=== PATIENT | female | born 1935 | race Caucasian/White ===

== ENCOUNTER 2020-05-23 10:48 | Inpatient (IN) ==
[2020-05-23] MEDS ORDERED: methylPREDNISolone SOD SUCC 125 MG/2 ML VIAL IV ONE (11:08)
[2020-05-23] MEDS ORDERED: 0.9 % SODIUM CHLORIDE 1,000 ML IV ONE ×2 (11:08→13:15)
--- NOTE | 2020-05-23 11:13 | Emergency Department Note ---
SOB HPI General Chief Complaint: Shortness of Breath/Dyspnea Stated Complaint: short of breath, fever, nausea, chills Time Seen by Provider: 05/23/20 11:08 Source: patient Mode of arrival: wheelchair Limitations: no limitations History of Present Illness HPI Narrative: Narrative: 84-year-old female with shortness of breath and fatigue she is 88% oxygen saturation on admission but normalizes with rest. She has been sick for 6 days with cough congestion fever and malaise. She went to urgent care on day 2 and got a Covid test which turned out to be positive and a chest x-ray. The urgent care provider felt that this was consistent with a bacterial pneumonia and started her on amoxicillin x5 days which has not helped. No nausea vomiting diarrhea. Her main complaint is just profound fatigue. Multiple people around her have been sick Related Data Home Medications Medication Instructions Recorded Confirmed aspirin 81 mg tablet,delayed 81 mg PO QDAY 11/03/19 05/23/20 release calcium carbonate 600 mg calcium 600 mg PO QDAY 11/03/19 05/23/20 (1,500 mg) tablet carvedilol 12.5 mg tablet 12.5 mg PO BID 11/03/19 05/23/20 furosemide 20 mg tablet 20 mg PO QDAY 11/03/19 05/23/20 potassium chloride 20 mEq 20 meq PO QDAY 11/03/19 05/23/20 tablet,extended release(part/cryst) Previous Rx's Medication Instructions Recorded amlodipine 5 mg tablet 5 mg PO QDAY #90 tab 03/22/20 amoxicillin 500 mg capsule 1,000 mg PO BID #20 cap 05/19/20 Allergies Allergy/AdvReac Type Severity Reaction Status Date / Time No Known Drug Allergies Allergy Verified 05/23/20 10:51 Review of Systems ROS ROS Narrative: Narrative: All systems ED: reviewed and negative except as stated. PFSH Narrative Patient History Narrative: Narrative: Medical/Surgical/Family History All Active Problems (Updated 05/23/20 @ 13:15 by Tom Mckeon MD) Pneumonia due to 2019 novel coronavirus (Acute) Acidosis, lactic (Acute) Community acquired bacterial pneumonia (Acute) Venous insufficiency (Acute) Stasis dermatitis of both legs (Acute) Joint pain (Chronic ~1999) Breast cancer (Chronic ~04/2009) Medical History Breast cancer (Chronic ~04/2009) Joint pain (Chronic ~1999) Hand and foot Stasis dermatitis of both legs (Acute) Venous insufficiency (Acute) Surgical History History of appendectomy (Chronic ~1960) History of colonoscopy (Chronic ~07/2012) Dr. Brar History of surgery (Acute ~2008) Right breast lymph nodes History of tonsillectomy (Chronic ~1948) Family History Grandmother Diabetes Paternal Social History Smoking Status: Former smoker Alcohol Intake Frequency: does not drink Substance Use: does not use Exam Narrative Narrative: Narrative: No acute distress resting. Initial oxygen saturation was 88% now 95% on room air at rest. She becomes short of breath with even sitting up for my exam. Normocephalic atraumatic. Conjunctive are clear sclerae white nonicteric. No nasal discharge or congestion. Oropharynx is pink and moist. Heart is regular rate and rhythm no murmur appreciated. Lungs with crackles in all lung vazquez consistent with pneumonia. No wheezes or rhonchi. Abdomen soft nontender nondistended. No pedal edema. +2 radial pulse. Alert oriented able to answer questions appropriately General Limitations: no limitations Course Vital Signs Vital signs: Vital Signs Temperature 99.0 F 05/23/20 10:49 Pulse Rate 76 05/23/20 10:49 Respiratory Rate 18 05/23/20 10:49 Blood Pressure 151/65 05/23/20 10:49 Pulse Oximetry (%) 88 L 05/23/20 10:49 Temperature 97.5 F 05/24/20 08:00 Pulse Rate 81 05/24/20 06:14 Respiratory Rate 17 05/24/20 08:00 Blood Pressure 132/65 05/24/20 08:00 Pulse Oximetry (%) 92 05/24/20 09:12 MDM MDM Narrative Medical decision making narrative: Narrative: Covid positive with exam co nsistent with pneumonia. Amoxicillin did not help. Start Solu-Medrol and get chest x-ray and laboratory. IV fluids Chest x-ray shows Covid pneumonia. Briefly discussed with hospitalist add dexamethasone At rest she is normoxic but when she moves around she requires oxygen. Briefly discussed results with the patient. She has lactic acidosis. On 2 L of oxygen she is saturating 93% at rest. She is requiring oxygen when she starts moving around- sats drop into the 80s. She is agreeable with coming in the hospital for Covid pneumonia. Discussed with hospitalist Dr. Mock -he will come see the patient. Lactic acid is repeated after getting IV fluids Lab Data Lab results reviewed: Yes I reviewed the patient's lab results. Result diagrams: 05/24/20 05:48 05/24/20 05:48 Labs: Lab Results 05/23/20 05/23/20 05/23/20 Range/Units 11:16 11:16 11:16 WBC 9.1 (4.5-11.0) K/mcL RBC 3.71 L (4.00-5.20) M/mcL Hgb 12.3 (12.0-15.0) g/dL Hct 35.6 L (36.0-48.0) % MCV 96.0 (80.0-100.0) fL MCH 33.2 (26.0-34.0) pg MCHC 34.6 (31.0-36.0) g/dL RDW 12.7 (11.5-14.5) % Plt Count 277 (140-440) K/mcL MPV 10.4 (7.4-10.4) fL Neut % (Auto) 75.5 (38.0-78.0) % Lymph % (Auto) 9.9 L (15.0-49.0) % [place] % (Auto) 12.7 H (1.0-12.0) % Eos % (Auto) 1.5 (0.0-7.0) % Baso % (Auto) 0.4 (0.0-2.0) % Lymph # (Auto) 0.90 L (1.50-4.80) K/mcL [place] # (Auto) 1.15 H (0.10-0.90) K/mcL Eos # (Auto) 0.14 (0.00-0.70) K/mcL Baso # (Auto) 0.04 (0.00-0.20) K/mcL Absolute Neutrophils 6.83 (1.80-8.00) K/mcL VBG Lactic Acid 3.3 H (0.5-2.0) mmol/L Sodium 138 (133-145) mmol/L Potassium 3.8 (3.3-5.1) mmol/L Chloride 99 (96-108) mmol/L Carbon Dioxide 26 (22-30) mmol/L Anion Gap 13.0 (8.0-16.0) BUN 19 (8-23) mg/dL Creatinine 1.3 H (0.6-1.1) mg/dL GFR Calculation 38 Glucose 185 H (70-105) mg/dL Calcium 8.0 L (8.6-10.4) mg/dL Total Bilirubin 0.6 (0.1-1.0) mg/dL AST 73 H (<32) U/L ALT 60 H (<40) U/L Alkaline Phosphatase 163 H (39-117) U/L Total Protein 6.5 (5.9-8.4) gm/dL Albumin 3.0 L (3.2-5.2) gm/dL Globulin 3.5 (2.2-3.7) gm/dL Albumin/Globulin Ratio 0.9 L (1.0-2.3) Procalcitonin (<0.10) ng/mL 05/23/20 05/23/20 Range/Units 11:16 16:00 WBC (4.5-11.0) K/mcL RBC (4.00-5.20) M/mcL Hgb (12.0-15.0) g/dL Hct (36.0-48.0) % MCV (80.0-100.0) fL MCH (26.0-34.0) pg MCHC (31.0-36.0) g/dL RDW (11.5-14.5) % Plt Count (140-440) K/mcL MPV (7.4-10.4) fL Neut % (Auto) (38.0-78.0) % Lymph % (Auto) (15.0-49.0) % [place] % (Auto) (1.0-12.0) % Eos % (Auto) (0.0-7.0) % Baso % (Auto) (0.0-2.0) % Lymph # (Auto) (1.50-4.80) K/mcL [place] # (Auto) (0.10-0.90) K/mcL Eos # (Auto) (0.00-0.70) K/mcL Baso # (Auto) (0.00-0.20) K/mcL Absolute Neutrophils (1.80-8.00) K/mcL VBG Lactic Acid 1.5 (0.5-2.0) mmol/L Sodium (133-145) mmol/L Potassium (3.3-5.1) mmol/L Chloride (96-108) mmol/L Carbon Dioxide (22-30) mmol/L Anion Gap (8.0-16.0) BUN (8-23) mg/dL Creatinine (0.6-1.1) mg/dL GFR Calculation Glucose (70-105) mg/dL Calcium (8.6-10.4) mg/dL Total Bilirubin (0.1-1.0) mg/dL AST (<32) U/L ALT (<40) U/L Alkaline Phosphatase (39-117) U/L Total Protein (5.9-8.4) gm/dL Albumin (3.2-5.2) gm/dL Globulin (2.2-3.7) gm/dL Albumin/Globulin Ratio (1.0-2.3) Procalcitonin 0.18 H (<0.10) ng/mL Radiology Data Radiology results reviewed: Yes I reviewed the patient's radiology results. Radiology results narrative: Chest x-ray shows patchy infiltrate consistent with Covid pneumonia EKG Data EKG #1: EKG attestation: Yes I reviewed and interpreted this EKG. and Yes There are no EKG findings of acute coronary syndrome EKG results narrative: EKG shows long [place]. Sinus rhythm. Q-wave in anterior and septal leads as well as inferior leads Discharge Plan Patient/Caregiver Discharge Instructions Pt seen by [employer]CRAFT CLEAN[employer] SUPERVISOR/PA only: No Clinical Impression: Pneumonia due to 2019 novel coronavirus, Acidosis, lactic Patient Disposition: Xfer As Inpt ([facility]) Condition: Fair Discharge Date/Time: 05/23/20 17:53
[2020-05-23] MEDS ORDERED: DEXAMETHASONE 10 MG/ML VIAL IV ONE (11:41)
--- NOTE | 2020-05-23 11:50 | XRay Report ---
CLINICAL INFORMATION: FEVER COMPARISON: 05/19/2020 FINDINGS: Heart size normal for technique. Mediastinum and pulmonary vessels are unremarkable. Moderate patchy right basilar infiltrate appreciated with smaller patchy infiltrates in both upper and left lower lungs. No effusion IMPRESSION: Moderate patchy infiltrate right lower lung with smaller patchy infiltrates in both upper and left lower lungs. Consider aspiration or infection Interpreted and Authenticated by: Ang Valenzuela 05/23/20
[2020-05-23 12:00] LABS: Basophils # (Auto) 0.04 K/mcL (0.00-0.20); Basophils % (Auto) 0.4 % (0.0-2.0); Eosinophils # (Auto) 0.14 K/mcL (0.00-0.70); Eosinophils % (Auto) 1.5 % (0.0-7.0); Hematocrit 35.6 % (36.0-48.0); Hemoglobin 12.3 g/dL (12.0-15.0); Lymphocytes % (Auto) 9.9 % (15.0-49.0); Mean Corpuscular HGB Conc 34.6 g/dL (31.0-36.0); Mean Platelet Volume 10.4 fL (7.4-10.4); Monocytes # (Auto) 1.15 K/mcL (0.10-0.90); Monocytes % (Auto) 12.7 % (1.0-12.0); Neutrophils % (Auto) 75.5 % (38.0-78.0); Platelet Count 277 K/mcL (140-440); RBC 3.71 M/mcL (4.00-5.20); Red Cell Distribution Width 12.7 % (11.5-14.5); WBC 9.1 K/mcL (4.5-11.0)
[2020-05-23 12:21] LABS: ALT/SGPT 60 U/L (<40); AST/SGOT 73 U/L (<32); Albumin/Globulin Ratio 0.9 (1.0-2.3); Alkaline Phosphatase 163 U/L (39-117); Bilirubin,Total 0.6 mg/dL (0.1-1.0); Blood Urea Nitrogen 19 mg/dL (8-23); Carbon Dioxide 26 mmol/L (22-30); Chloride 99 mmol/L (96-108); Globulin 3.5 gm/dL (2.2-3.7); Glomerular Filtration Rate 38; Glucose 185 mg/dL (70-105)
[2020-05-23] MEDS ORDERED: SENNOSIDES 1 TABLET PO PRN (17:04)
[2020-05-23] MEDS ORDERED: REMDESIVIR 200 MG in 0.9 % SODIUM CHLORIDE 250 ML IV ONE ×2 (17:09→18:00)
--- NOTE | 2020-05-23 17:59 | Internal Med History&Physical ---
HPI History of Present Illness Patient information: Note initiated : 05/23/20 at 5:52 pm Service Date, if different from initiated Date: [] Patient: Sherry Watson a 84 y/o F admitted on for short of breath, fever, nausea, chills. Chief Complaint: [Shortness of breath] History of present illness: Ms. Watson is a 84 year old female with a history of hypertension, breast cancer diagnosed in 2019 status post surgery, chemotherapy and radiation therapy and had no recurrence, takes low-dose Lasix for intermittent lower extremity edema who presented to the ED for progressive shortness of breath. The patient was diagnosed with COVID on 05/19 with a positive SARS-CoV-2 PCR when she presented for clinical evaluation of severe fatigue. She went home but later developed a cough and shortness of breath prompting the ED visit. In the ED, the patient was hypoxic and had a new oxygen requirement of 2 l/min. Chest xray PA showed moderate patchy infiltrate in the FLL and patchy infiltrates in both upper and lower left lung vazquez. WBC was normal, lactic acid was initially 3.3 and improved to 1.5 after IV fluid was given. Creatinine was 1.3 and LFTs were mildly elevated. Propcalcitonin was .18. Code status was discussed, the patient wishes to be DNR/DNI. ROS mostly positive for fever, fatigue, shortness of breath, cough reproducible left rib pain when coughing and otherwise negative. Other review of systems per below. The patient appears comfortable on nasal canula oxygen, admitted to PCU. Constitutional Constitutional: Present fatigue and fever(s) Cardiovascular Cardiovascular: Present leg edema; Absent chest pain Gastrointestinal Gastrointestinal: Absent abdominal pain and change in bowel habits Genitourinary Genitourinary: Absent dysuria and urinary frequency Musculoskeletal Musculoskeletal: Absent abnormal gait and muscle weakness Integumentary Integumentary: Absent erythema and lesions Neurological Neurological: Present sensory deficit; Absent abnormal speech PFSH PFSH All Active Problems (Updated 05/23/20 @ 13:15 by Tom Mckeon MD) Pneumonia due to 2019 novel coronavirus (Acute) Acidosis, lactic (Acute) Community acquired bacterial pneumonia (Acute) Venous insufficiency (Acute) Stasis dermatitis of both legs (Acute) Joint pain (Chronic ~1999) Breast cancer (Chronic ~04/2009) Medical History Breast cancer (Chronic ~04/2009) Joint pain (Chronic ~1999) Hand and foot Stasis dermatitis of both legs (Acute) Venous insufficiency (Acute) Surgical History History of appendectomy (Chronic ~1960) History of colonoscopy (Chronic ~07/2012) Dr. Brar History of surgery (Acute ~2008) Right breast lymph nodes History of tonsillectomy (Chronic ~1948) Family History Grandmother Diabetes Paternal Social History marital status: smoking status: Former smoker alcohol intake frequency: does not drink substance use type: does not use MEDS/ALLERGIES Home Medications and Allergies Home Medications Medication Instructions Recorded Confirmed Type aspirin 81 mg tablet,delayed 81 mg PO QDAY 11/03/19 05/23/20 History release calcium carbonate 600 mg calcium 600 mg PO QDAY 11/03/19 05/23/20 History (1,500 mg) tablet carvedilol 12.5 mg tablet 12.5 mg PO BID 11/03/19 05/23/20 History furosemide 20 mg tablet 20 mg PO QDAY 11/03/19 05/23/20 History potassium chloride 20 mEq 20 meq PO QDAY 11/03/19 05/23/20 History tablet,extended release(part/cryst) amlodipine 5 mg tablet 5 mg PO QDAY #90 tab 03/22/20 05/23/20 Rx amoxicillin 500 mg capsule 1,000 mg PO BID #20 cap 05/19/20 05/23/20 Rx Allergies Allergy/AdvReac Type Severity Reaction Status Date / Time No Known Drug Allergies Allergy Verified 05/23/20 10:51 EXAM Constitutional Vitals: Temp Pulse Resp BP Pulse Ox 99.0 F 81 18 125/57 95 05/23/20 10:49 05/23/20 16:31 05/23/20 16:31 05/23/20 16:31 05/23/20 16:31 Head Head exam: Present atraumatic and normal inspection Eye Eye exam: Present normal appearance; Absent scleral icterus ENT ENT exam: Present mucous membranes moist and normal exam Neck Neck exam: Present full ROM; Absent lymphadenopathy Respiratory Respiratory exam: Present rales and wheezes; Absent accessory muscle use and respiratory distress Cardiovascular Cardiovascular exam: Present normal rate and rhythm GI/Abdominal GI/Abdominal exam: Present soft; Absent distended and tenderness Extremities Exam Extremities exam: Present full ROM and normal inspection; Absent pedal edema Neurological Exam Neurological exam: Present CN II-XII intact and oriented X3 Psychiatric Psychiatric exam: Present normal affect and normal mood Skin Skin exam: Present normal color and warm DATA Data Completed and Pending Labs: Labs from last 24 hours 05/23/20 05/23/20 05/23/20 16:00 11:16 11:16 WBC RBC Hgb Hct MCV MCH MCHC RDW Plt Count MPV Neut % (Auto) Lymph % (Auto) [place] % (Auto) Eos % (Auto) Baso % (Auto) Lymph # (Auto) [place] # (Auto) Eos # (Auto) Baso # (Auto) Absolute Neutrophils VBG Lactic Acid 1.5 3.3 H Sodium Potassium Chloride Carbon Dioxide Anion Gap BUN Creatinine GFR Calculation Glucose Calcium Total Bilirubin AST ALT Alkaline Phosphatase Total Protein Albumin Globulin Albumin/Globulin Ratio Procalcitonin 0.18 H 05/23/20 05/23/20 11:16 11:16 WBC 9.1 RBC 3.71 L Hgb 12.3 Hct 35.6 L MCV 96.0 MCH 33.2 MCHC 34.6 RDW 12.7 Plt Count 277 MPV 10.4 Neut % (Auto) 75.5 Lymph % (Auto) 9.9 L [place] % (Auto) 12.7 H Eos % (Auto) 1.5 Baso % (Auto) 0.4 Lymph # (Auto) 0.90 L [place] # (Auto) 1.15 H Eos # (Auto) 0.14 Baso # (Auto) 0.04 Absolute Neutrophils 6.83 VBG Lactic Acid Sodium 138 Potassium 3.8 Chloride 99 Carbon Dioxide 26 Anion Gap 13.0 BUN 19 Creatinine 1.3 H GFR Calculation 38 Glucose 185 H Calcium 8.0 L Total Bilirubin 0.6 AST 73 H ALT 60 H Alkaline Phosphatase 163 H Total Protein 6.5 Albumin 3.0 L Globulin 3.5 Albumin/Globulin Ratio 0.9 L Procalcitonin A/P Narrative A/P Narrative: Assessment: 84 year old female with a history of hypertension, cardiomyopathy with improved LV function, remote breast cancer treated in 2008 with no recurrence now admitted for acute hypoxic respiratory failure probably secondary to COVID-19. #Acute hypoxic respiratory failure #COVID-19 Plan: Oxygen supplementation as needed, start Dexamethasone and Remdesivir, follow d-dimer, LDH, procalcitonin, monitor closely in PCU. Further chest xrays as needed depending on respiratory status. Will keep other causes of hypoxia in the differential but COVID-19 seems most likely at this time. #Elevated creatine - this as probably a prerenal BETH but no previous labs for comparison, could have CKD. Anticipate improvement in renal function by tomorrow after IV fluid given in the ED. Follow renal function and urine output, avoid nephrotoxic meds. #Elevated LFTs - no abdominal tenderness on exam, will follow labs for now and expand workup if LFTs remain elevated. #Hypertension - Continue Coreg at 6.25 mg BID (down from 12.5 mg BID), hold home norvasc for now. #Hx of cardiomyopathy - per records this was secondary to chemotherapy from breast cancer and hypertension, LVEF recovered to 55%. No evidence of congestive heart failure now, will hold lasix tonight and consider resuming tomorrow. On Coreg per above, currently not on an YARELI-I or ARB but was in the past per review of records. #Hx of breast cancer, 2008 - treated with surgery, chemotherapy and radiation therapy. No evidence of recurrence. #DVT prophylaxis - heparin SQ and SCD. Time Spent With Patient Time: Total time spent is greater than 50% in coordination of care (as documented) at patient's floor/unit and/or counseling patient: Total time spent with greater than 50% in coordination of care (as documented) at patient's floor/unit and/or counseling patient:: Greater than 35 minutes
[2020-05-23 19:55] LABS: ALT/SGPT 55 U/L (<40); AST/SGOT 61 U/L (<32); Albumin 3.1 gm/dL (3.2-5.2); Albumin/Globulin Ratio 0.9 (1.0-2.3); Alkaline Phosphatase 167 U/L (39-117); Bilirubin,Direct < 0.2 mg/dL (<0.3); Bilirubin,Total 0.5 mg/dL (0.1-1.0); Blood Urea Nitrogen 18 mg/dL (8-23); Calcium 7.8 mg/dL (8.6-10.4); Carbon Dioxide 24 mmol/L (22-30); Chloride 100 mmol/L (96-108); Globulin 3.6 gm/dL (2.2-3.7); Glomerular Filtration Rate 46; Glucose 174 mg/dL (70-105); Lactate Dehydrogenase 450 U/L (135-225); Phosphorous 2.9 mg/dL (2.5-4.5); Triglycerides 64 mg/dL (<150)
[2020-05-23] MEDS ORDERED: CARVEDILOL 12.5 MG TABLET PO SCH (21:00)
[2020-05-23] MEDS: HEPARIN 5,000 UNIT/ML VIAL SQ SCH (21:33)
[2020-05-23] MEDS: 0.9 % SODIUM CHLORIDE 10 ML SYRINGE IV SCH (21:33)
[2020-05-23 23:08] LABS: Appearance,Urine CLEAR (Clear); Bilirubin,Urine Negative (Negative); Color,Urine AMBER; Culture Indicated,Urine No; Glucose,Urine (UA) Negative (Negative); Ketones,Urine 20 mg/dL (Negative); Leukocyte Esterase,Urine Negative /ug (Negative); Mucus,Urine MANY /hpf; Nitrate,Urine Negative (Negative); Protein,Urine 100 mg/dL (Negative); Specific Gravity,Urine 1.024 (1.000-1.035); Urine Blood Negative (Negative); Urine RBC 1 /hpf (0-1); Urine Squamous Epithelial Cell 10 /hpf (0-4); Urine Transitional Epi Cells < 1 /hpf (0-2); Urine WBC 1 /hpf (0-4)
[2020-05-24] MEDS: 0.9 % SODIUM CHLORIDE 10 ML SYRINGE IV SCH ×3 (05:43→21:31)
[2020-05-24 07:31] LABS: ALT/SGPT 46 U/L (<40); AST/SGOT 45 U/L (<32); Albumin 2.7 gm/dL (3.2-5.2); Albumin/Globulin Ratio 0.8 (1.0-2.3); Alkaline Phosphatase 152 U/L (39-117); Bilirubin,Direct < 0.2 mg/dL (<0.3); Bilirubin,Total 0.3 mg/dL (0.1-1.0); Blood Urea Nitrogen 21 mg/dL (8-23); Carbon Dioxide 24 mmol/L (22-30); Chloride 102 mmol/L (96-108); Globulin 3.5 gm/dL (2.2-3.7); Glomerular Filtration Rate 52; Glucose 149 mg/dL (70-105); Lactate Dehydrogenase 422 U/L (135-225); Phosphorous 3.4 mg/dL (2.5-4.5); Triglycerides 70 mg/dL (<150); Uric Acid 5.4 mg/dL (2.5-8.0)
[2020-05-24 07:40] LABS: Hemoglobin 12.2 g/dL (12.0-15.0); Lymphocytes % 6 % (15-49); Mean Corpuscular HGB Conc 33.9 g/dL (31.0-36.0); Mean Platelet Volume 10.2 fL (7.4-10.4); Monocytes % (Manual) 2 % (1-12); Platelet Count 278 K/mcL (140-440); Platelet Estimate NORMAL (Normal); RBC 3.83 M/mcL (4.00-5.20); RBC Morphology NORMAL (Normal); Reactive Lymphocytes 1 % (0-2); Red Cell Distribution Width 12.5 % (11.5-14.5); Segmented Neutrophils % 91 % (38-78); WBC 9.9 K/mcL (4.5-11.0)
[2020-05-24] MEDS ORDERED: CARVEDILOL 6.25 MG TABLET PO SCH (08:00)
[2020-05-24] MEDS: ASPIRIN 81 MG TAB.CHEW PO SCH (08:07)
[2020-05-24] MEDS: HEPARIN 5,000 UNIT/ML VIAL SQ SCH (08:07)
[2020-05-24] MEDS: DEXAMETHASONE 4 MG TABLET PO SCH (08:07)
[2020-05-24] MEDS ORDERED: CARVEDILOL 6.25 MG TABLET PO ONE (11:57)
[2020-05-24] MEDS ORDERED: 0.9 % SODIUM CHLORIDE 500 ML IV ONE (12:12)
[2020-05-24] MEDS: REMDESIVIR 100 MG in 0.9 % SODIUM CHLORIDE 250 ML IV SCH (13:02)
--- NOTE | 2020-05-24 15:08 | Internal Med Progress Note ---
SUBJECTIVE Subjective Patient information: Note initiated : 05/24/20 at 3:05 pm Service Date, if different from initiated Date: [] Patient: Sherry Watson 84 y/o F admitted on 05/23/20 for short of breath, fever, nausea, chills. Chief Complaint: [shortness of breath] Principal diagnosis: COVID-19 Interval history: Ms. Watson is a 84 year old female with a history of hypertension, breast cancer diagnosed in 2019 status post surgery, chemotherapy and radiation therapy and had no recurrence, takes low-dose Lasix for in termittent lower extremity edema who presented to the ED for progressive shortness of breath. The patient was diagnosed with COVID on 05/19 with a positive SARS-CoV-2 PCR when she presented for clinical evaluation of severe fatigue. She went home but later developed a cough and shortness of breath p rompting the ED visit. In the ED, the patient was hypoxic and had a new oxygen requirement of 2 l/min. Chest xray PA showed moderate patchy infiltrate in the FLL and patchy infiltrates in both upper and lower left lung vazquez. WBC was normal, lactic acid was initially 3.3 and improved to 1.5 after IV fluid was given. Creatinine was 1.3 and LFTs were mildly elevated. Procalcitonin was .18. Code status was discussed, the patient wishes to be DNR/DNI. The patient was started on Dexamethasone and Remdesivir for COVID-19 and acute hypoxic respiratory failure. 05/24-feels better today, had a short run of SVT on telemetry that resolved spontaneously, increased Carvedilol to 12.5 mg BID (home dose), ordered RUQ ultrasound for persistently elevated LFTs. PT and OT. Constitutional Vitals: Vital Signs Temp Pulse Resp BP Pulse Ox 97.5 F 90 20 123/61 97 05/24/20 08:00 05/24/20 12:36 05/24/20 12:36 05/24/20 12:12 05/24/20 12:36 Period Temp Pulse Resp BP Sys/Knight Pulse Ox Last 24 Hr 97.5 F-98.9 F 78-153 14-31 81-142/51-120 88-97 Intake and Output 05/24/20 05/24/20 05/24/20 05:59 13:59 21:59 Intake Total 200 Output Total 0 175 Balance 0 25 Weight 75.206 kg Patient Weight 05/25/20 05:59 Weight 75.206 kg Intake & Output: Intake & Output 05/24/20 05/24/20 05/24/20 05:59 13:59 21:59 Intake Total 200 Output Total 0 175 Balance 0 25 Weight 75.206 kg Intake: Oral 200 Output: Void Amount 0 175 Other: Urine Appearance Clear Clear Urine Color Dark Yellow Bright Yellow Urine Odor Strong Normal # Bowel Movements 0 Head Head exam: Present atraumatic and normal inspection Eye Eye exam: Present normal appearance; Absent scleral icterus Neck Neck exam: Present full ROM Respiratory Respiratory exam: Absent accessory muscle use, respiratory distress and wheezes Cardiovascular Cardiovascular exam: Present normal rate and rhythm GI/Abdominal GI/Abdominal exam: Present soft; Absent tenderness Extremities Exam Extremities exam: Present full ROM and normal inspection Neurological Exam Neurological exam: Present CN II-XII intact and oriented X3 Psychiatric Psychiatric exam: Present normal affect and normal mood Skin Skin exam: Present normal color and warm OBJ DATA Labs CBC & Chem 7: 05/24/20 05:48 05/24/20 05:48 Labs: Abnormal Lab Results 05/24/20 05/24/20 05/24/20 05:49 05:49 05:49 RBC Hct Lymph % (Auto) [place] % (Auto) Lymph # (Auto) [place] # (Auto) Seg Neutrophils % Lymphocytes % Fibrinogen 554 H D-Dimer 1.89 H VBG Lactic Acid Creatinine Glucose Calcium GGT AST ALT Alkaline Phosphatase Lactate Dehydrogenase 428 H Albumin Albumin/Globulin Ratio Procalcitonin 0.17 H Urine Protein Urine Ketones Urine Urobilinogen Ur Squamous Epith Cells Urine Mucus 05/24/20 05/24/20 05/23/20 05:48 05:48 21:15 RBC 3.83 L Hct Lymph % (Auto) [place] % (Auto) Lymph # (Auto) [place] # (Auto) Seg Neutrophils % 91 H Lymphocytes % 6 L Fibrinogen D-Dimer VBG Lactic Acid Creatinine Glucose 149 H Calcium 8.0 L GGT 66 H AST 45 H ALT 46 H Alkaline Phosphatase 152 H Lactate Dehydrogenase 422 H Albumin 2.7 L Albumin/Globulin Ratio 0.8 L Procalcitonin Urine Protein 100 A Urine Ketones 20 A Urine Urobilinogen 4.0 A Ur Squamous Epith Cells 10 H Urine Mucus Many A 05/23/20 05/23/20 05/23/20 17:50 11:16 11:16 RBC Hct Lymph % (Auto) [place] % (Auto) Lymph # (Auto) [place] # (Auto) Seg Neutrophils % Lymphocytes % Fibrinogen D-Dimer VBG Lactic Acid 3.3 H Creatinine Glucose 174 H Calcium 7.8 L GGT 71 H AST 61 H ALT 55 H Alkaline Phosphatase 167 H Lactate Dehydrogenase 450 H Albumin 3.1 L Albumin/Globulin Ratio 0.9 L Procalcitonin 0.18 H Urine Protein Urine Ketones Urine Urobilinogen Ur Squamous Epith Cells Urine Mucus 05/23/20 05/23/20 11:16 11:16 RBC 3.71 L Hct 35.6 L Lymph % (Auto) 9.9 L [place] % (Auto) 12.7 H Lymph # (Auto) 0.90 L [place] # (Auto) 1.15 H Seg Neutrophils % Lymphocytes % Fibrinogen D-Dimer VBG Lactic Acid Creatinine 1.3 H Glucose 185 H Calcium 8.0 L GGT AST 73 H ALT 60 H Alkaline Phosphatase 163 H Lactate Dehydrogenase Albumin 3.0 L Albumin/Globulin Ratio 0.9 L Procalcitonin Urine Protein Urine Ketones Urine Urobilinogen Ur Squamous Epith Cells Urine Mucus Meds: Medications Aspirin (Aspirin) 81 mg PO DAILY [facility] Last Admin: 05/24/20 08:07 Dose: 81 mg Documented by: Carvedilol (Coreg) 12.5 mg PO BIDCC [facility] Dexamethasone (Decadron) 6 mg PO DAILY [facility] Last Admin: 05/24/20 08:07 Dose: 6 mg Documented by: Heparin Sodium (Porcine) (Heparin) 5,000 unit SQ Q12 [facility] Last Admin: 05/24/20 08:07 Dose: 5,000 unit Documented by: REMDESIVIR 100 mg/ Sodium (Chloride) 250 mls @ 500 mls/hr IV DAILY@1300 [facility] Stop: 05/27/20 13:29 Last Admin: 05/24/20 13:02 Dose: 500 mls/hr Documented by: Adithya (Senokot) 2 tab PO HSP PRN PRN Reason: Constipation Last Admin: 05/24/20 10:17 Dose: 2 tab Documented by: Sodium Chloride (Saline Flush) 10 ml IV Q8 [facility] Last Admin: 05/24/20 13:02 Dose: 10 ml Documented by: A/P Narrative A/P Narrative: Assessment: 84 year old female with a history of hypertension, cardiomyopathy with improved LV function, remote breast cancer treated in 2008 with no recurrence now admitted for acute hypoxic respiratory secondary to COVID-19. #Acute hypoxic respiratory failure #COVID-19 Plan: Oxygen supplementation as needed, continue Dexamethasone and Remdesivir, follow d-dimer, LDH, procalcitonin, monitor in PCU status. Further chest xrays as needed depending on respiratory status but seems to be improving. Will keep other causes of hypoxia in the differential but COVID-19 seems most likely at this time. #Acute kidney injury - resolved with IV fluid. #Elevated LFTs - no abdominal tenderness on exam, RUQ US ordered. #Hypertension - home dose Coreg, holding home norvasc for now. #Hx of cardiomyopathy - per records this was secondary to chemotherapy from breast cancer and hypertension, LVEF recovered to 55%. No evidence of congestive heart failure now, will hold lasix tonight and consider resuming tomorrow. On Coreg per above, currently not on an YARELI-I or ARB but was in the past per review of records. #Hx of breast cancer, 2008 - treated with surgery, chemotherapy and radiation therapy. No evidence of recurrence. #Supraventricular tachycardia - resolved spontaneously, increased Coreg back to home dose. Temeletry. #DVT prophylaxis - Lovenox SQ BID and SCD. Time Spent With Patient Time: Total time spent is greater than 50% in coordination of care (as documented) at patient's floor/unit and/or counseling patient: Total time spent with greater than 50% in coordination of care (as documented) at patient's floor/unit and/or counseling patient:: 15 - 24 minutes
[2020-05-24] MEDS: CARVEDILOL 6.25 MG TABLET PO SCH (18:24)
--- NOTE | 2020-05-24 19:12 | Ultrasound Report ---
CLINICAL INFORMATION: elevated lfts COMPARISON: None. FINDINGS: The liver is normal in size configuration and echotexture. Scattered simple hepatic cysts ranging up to 3.5 cm left hepatic lobe. No solid hepatic lesions. Gallbladder and bile ducts are normal CBD is 4 mm. The pancreas is grossly normal. There is no free fluid IMPRESSION: Scattered hepatic cysts ranging up to 3.5 cm otherwise normal Interpreted and Authenticated by: Ang Valenzuela 05/24/20
[2020-05-24] MEDS: ENOXAPARIN 40 MG/0.4 ML SYRINGE SQ SCH (21:31)
[2020-05-25] MEDS ORDERED: MAGNESIUM HYDROXIDE 30 ML ORAL.SUSP PO PRN ×2 (04:55→15:25)
[2020-05-25] MEDS ORDERED: BISACODYL 10 MG SUPP.RECT PR PRN ×2 (04:55→15:25)
[2020-05-25] MEDS: 0.9 % SODIUM CHLORIDE 10 ML SYRINGE IV SCH ×3 (06:15→21:22)
[2020-05-25 07:00] LABS: ALT/SGPT 47 U/L (<40); AST/SGOT 50 U/L (<32); Albumin 2.5 gm/dL (3.2-5.2); Albumin/Globulin Ratio 0.8 (1.0-2.3); Alkaline Phosphatase 141 U/L (39-117); Bilirubin,Direct < 0.2 mg/dL (<0.3); Bilirubin,Total 0.2 mg/dL (0.1-1.0); Blood Urea Nitrogen 33 mg/dL (8-23); Calcium 7.8 mg/dL (8.6-10.4); Carbon Dioxide 24 mmol/L (22-30); Chloride 103 mmol/L (96-108); Globulin 3.1 gm/dL (2.2-3.7); Glomerular Filtration Rate 42; Glucose 164 mg/dL (70-105); Lactate Dehydrogenase 381 U/L (135-225); Phosphorous 3.5 mg/dL (2.5-4.5); Triglycerides 43 mg/dL (<150); Uric Acid 5.5 mg/dL (2.5-8.0)
[2020-05-25 07:01] LABS: Lactate Dehydrogenase 393 U/L (135-225)
[2020-05-25 08:41] LABS: Hematocrit 33.8 % (36.0-48.0); Hemoglobin 11.1 g/dL (12.0-15.0); Lymphocytes % 9 % (15-49); Mean Cell Volume 92.3 fL (80.0-100.0); Mean Corpuscular HGB Conc 32.8 g/dL (31.0-36.0); Mean Platelet Volume 10.1 fL (7.4-10.4); Monocytes % (Manual) 6 % (1-12); Platelet Count 352 K/mcL (140-440); Platelet Estimate NORMAL (Normal); RBC 3.66 M/mcL (4.00-5.20); RBC Morphology NORMAL (Normal); Red Cell Distribution Width 12.6 % (11.5-14.5); Segmented Neutrophils % 84 % (38-78); WBC 18.9 K/mcL (4.5-11.0)
[2020-05-25] MEDS ORDERED: DOCUSATE SODIUM 100 MG CAPSULE PO SCH (09:00)
[2020-05-25] MEDS: ENOXAPARIN 40 MG/0.4 ML SYRINGE SQ SCH (09:12)
[2020-05-25] MEDS: CARVEDILOL 6.25 MG TABLET PO SCH (09:12)
[2020-05-25] MEDS: DEXAMETHASONE 4 MG TABLET PO SCH (09:12)
[2020-05-25] MEDS: ASPIRIN 81 MG TAB.CHEW PO SCH (09:12)
--- NOTE | 2020-05-25 09:43 | XRay Report ---
CLINICAL INFORMATION: new leukocytosis and increased respiratory rate COMPARISON: 05/23/2020 FINDINGS: Mild cardiomegaly is unchanged. Mediastinum and pulmonary vessels are unremarkable. Patchy bilateral infiltrates have improved considerably since exam two days prior with minimal residual in both upper and lower lung vazquez. No effusions. IMPRESSION: Improvement in patchy bilateral infiltrates Interpreted and Authenticated by: Ang Valenzuela 05/25/20
[2020-05-25 10:44] LABS: Hepatitis B Surface Antigen Negative (Negative)
[2020-05-25] MEDS: REMDESIVIR 100 MG in 0.9 % SODIUM CHLORIDE 250 ML IV SCH (13:00)
--- NOTE | 2020-05-25 14:30 | Internal Med Progress Note ---
SUBJECTIVE Subjective Patient information: Note initiated : 05/25/20 at 2:22 pm Service Date, if different from initiated Date: [] Patient: Sherry Watson 84 y/o F admitted on 05/23/20 for short of breath, fever, nausea, chills. Chief Complaint: [] Principal diagnosis: COVID-19 Interval history: Ms. Watson is a 84 year old female with a history of hypertension, breast cancer diagnosed in 2019 status post surgery, chemotherapy and radiation therapy and had no recurrence, takes low-dose Lasix for intermittent lower extremity edema who presented to the ED for progressive shortness of breath. The patient was diagnosed with COVID on 05/19 with a positive SARS-CoV-2 PCR when she presented for clinical evaluation of severe fatigue. She went home but later developed a cough and shortness of breath prompting the ED visit. In the ED, the patient was hypoxic and had a new oxygen requirement of 2 l/min. Chest xray PA showed moderate patchy infiltrate in the FLL and patchy infiltrates in both upper and lower left lung vazquez. WBC was normal, lactic acid was initially 3.3 and improved to 1.5 after IV fluid was given. Creatinine was 1.3 and LFTs were mildly elevated. Procalcitonin was .18. Code status was discussed, the patient wishes to be DNR/DNI. The patient was started on Dexamethasone and Remdesivir for COVID-19 and acute hypoxic respiratory failure. 05/24-feels better today, had a short run of SVT on telemetry that resolved spontaneously, increased Carvedilol to 12.5 mg BID (home dose), ordered RUQ ultr asound for persistently elevated LFTs. PT and OT. 12-creatinine slightly increased today-following, leukocytosis-suspect from dexamethasone-following, transfer to med/surg Constitutional Vitals: Vital Signs Temp Pulse Resp BP Pulse Ox 98.3 F 73 16 128/74 97 05/25/20 12:01 05/25/20 10:01 05/25/20 12:01 05/25/20 12:01 05/25/20 12:01 Period Temp Pulse Resp BP Sys/Knight Pulse Ox Last 24 Hr 97.2 F-98.7 F 67-143 13-29 105-163/51-86 92-97 Intake and Output 05/25/20 05/25/20 05/25/20 05:59 13:59 21:59 Intake Total 250 Output Total 140 200 Balance -140 50 Intake & Output: Intake & Output 05/25/20 05/25/20 05/25/20 05:59 13:59 21:59 Intake Total 250 Output Total 140 200 Balance -140 50 Intake: IV 250 Veklury 100 mg In Sodium 250 Chloride 0.9% 250 ml @ 500 mls/ hr IV DAILY@1300 FARZANA Rx#: [id number] Output: Void Amount 140 200 Other: Urine Appearance Clear Clear Urine Color Dark Yellow Bright Yellow Urine Odor Strong Normal Stool Size Small Stool Color Brown Stool Consistency Formed # Bowel Movements 0 1 Head Head exam: Present atraumatic and normal inspection Eye Eye exam: Present normal appearance ENT ENT exam: Present mucous membranes moist, normal exam and normal external ear exam Neck Neck exam: Present normal inspection Respiratory Respiratory exam: Absent accessory muscle use, rales and wheezes Cardiovascular Cardiovascular exam: Present normal rate and rhythm GI/Abdominal GI/Abdominal exam: Present normal bowel sounds Back Exam Back exam: Present normal inspection Neurological Exam Neurological exam: Present alert and oriented X3 Skin Skin exam: Present intact and warm OBJ DATA Labs CBC & Chem 7: 05/25/20 05:28 05/25/20 05:27 Labs: Abnormal Lab Results 05/25/20 05/25/20 05/25/20 05:28 05:27 05:27 WBC 18.9 H RBC 3.66 L Hgb 11.1 L Hct 33.8 L Lymph % (Auto) [place] % (Auto) Lymph # (Auto) [place] # (Auto) Seg Neutrophils % 84 H Lymphocytes % 9 L Fibrinogen D-Dimer VBG Lactic Acid BUN Creatinine Glucose Calcium GGT AST ALT Alkaline Phosphatase Lactate Dehydrogenase 393 H Total Protein Albumin Albumin/Globulin Ratio Procalcitonin 0.15 H Urine Protein Urine Ketones Urine Urobilinogen Ur Squamous Epith Cells Urine Mucus 05/25/20 05/25/20 05/24/20 05:27 05:27 05:49 WBC RBC Hgb Hct Lymph % (Auto) [place] % (Auto) Lymph # (Auto) [place] # (Auto) Seg Neutrophils % Lymphocytes % Fibrinogen D-Dimer 1.28 H VBG Lactic Acid BUN 33 H Creatinine 1.2 H Glucose 164 H Calcium 7.8 L GGT 63 H AST 50 H ALT 47 H Alkaline Phosphatase 141 H Lactate Dehydrogenase 381 H Total Protein 5.6 L Albumin 2.5 L Albumin/Globulin Ratio 0.8 L Procalcitonin 0.17 H Urine Protein Urine Ketones Urine Urobilinogen Ur Squamous Epith Cells Urine Mucus 05/24/20 05/24/20 05/24/20 05:49 05:49 05:48 WBC RBC Hgb Hct Lymph % (Auto) [place] % (Auto) Lymph # (Auto) [place] # (Auto) Seg Neutrophils % Lymphocytes % Fibrinogen 554 H D-Dimer 1.89 H VBG Lactic Acid BUN Creatinine Glucose 149 H Calcium 8.0 L GGT 66 H AST 45 H ALT 46 H Alkaline Phosphatase 152 H Lactate Dehydrogenase 428 H 422 H Total Protein Albumin 2.7 L Albumin/Globulin Ratio 0.8 L Procalcitonin Urine Protein Urine Ketones Urine Urobilinogen Ur Squamous Epith Cells Urine Mucus 05/24/20 05/23/20 05/23/20 05:48 21:15 17:50 WBC RBC 3.83 L Hgb Hct Lymph % (Auto) [place] % (Auto) Lymph # (Auto) [place] # (Auto) Seg Neutrophils % 91 H Lymphocytes % 6 L Fibrinogen D-Dimer VBG Lactic Acid BUN Creatinine Glucose 174 H Calcium 7.8 L GGT 71 H AST 61 H ALT 55 H Alkaline Phosphatase 167 H Lactate Dehydrogenase 450 H Total Protein Albumin 3.1 L Albumin/Globulin Ratio 0.9 L Procalcitonin Urine Protein 100 A Urine Ketones 20 A Urine Urobilinogen 4.0 A Ur Squamous Epith Cells 10 H Urine Mucus Many A 05/23/20 05/23/20 05/23/20 11:16 11:16 11:16 WBC RBC Hgb Hct Lymph % (Auto) [place] % (Auto) Lymph # (Auto) [place] # (Auto) Seg Neutrophils % Lymphocytes % Fibrinogen D-Dimer VBG Lactic Acid 3.3 H BUN Creatinine 1.3 H Glucose 185 H Calcium 8.0 L GGT AST 73 H ALT 60 H Alkaline Phosphatase 163 H Lactate Dehydrogenase Total Protein Albumin 3.0 L Albumin/Globulin Ratio 0.9 L Procalcitonin 0.18 H Urine Protein Urine Ketones Urine Urobilinogen Ur Squamous Epith Cells Urine Mucus 05/23/20 11:16 WBC RBC 3.71 L Hgb Hct 35.6 L Lymph % (Auto) 9.9 L [place] % (Auto) 12.7 H Lymph # (Auto) 0.90 L [place] # (Auto) 1.15 H Seg Neutrophils % Lymphocytes % Fibrinogen D-Dimer VBG Lactic Acid BUN Creatinine Glucose Calcium GGT AST ALT Alkaline Phosphatase Lactate Dehydrogenase Total Protein Albumin Albumin/Globulin Ratio Procalcitonin Urine Protein Urine Ketones Urine Urobilinogen Ur Squamous Epith Cells Urine Mucus Meds: Medications Aspirin (Aspirin) 81 mg PO DAILY [facility] Last Admin: 05/25/20 09:12 Dose: 81 mg Documented by: Bisacodyl (Dulcolax) 10 mg DE Q2-3DAYS PRN PRN Reason: Constipation Carvedilol (Coreg) 12.5 mg PO BIDCC [facility] Last Admin: 05/25/20 09:12 Dose: 12.5 mg Documented by: Dexamethasone (Decadron) 6 mg PO DAILY [facility] Last Admin: 05/25/20 09:12 Dose: 6 mg Documented by: Docusate Sodium (Colace) 100 mg PO BID [facility] Last Admin: 05/25/20 09:12 Dose: 100 mg Documented by: Enoxaparin Sodium (Lovenox) 40 mg SQ BID [facility] Last Admin: 05/25/20 09:12 Dose: 40 mg Documented by: REMDESIVIR 100 mg/ Sodium (Chloride) 250 mls @ 500 mls/hr IV DAILY@1300 [facility] Stop: 05/27/20 13:29 Last Infusion: 05/25/20 13:44 Dose: Infused Documented by: Magnesium Hydroxide (Milk Of Magnesia) 30 ml PO DAILYP PRN PRN Reason: Constipation Senna (Senokot) 2 tab PO HSP PRN PRN Reason: Constipation Last Admin: 05/24/20 10:17 Dose: 2 tab Documented by: Sodium Chloride (Saline Flush) 10 ml IV Q8 [facility] Last Admin: 05/25/20 13:45 Dose: 10 ml Documented by: A/P Narrative A/P Narrative: Assessment: 84 year old female with a history of hypertension, cardiomyopathy with improved LV function, remote breast cancer treated in 2008 with no recurrence now admitted for acute hypoxic respiratory secondary to COVID-19. #Acute hypoxic respiratory failure #COVID-19 Plan: Oxygen supplementation as needed, continue Dexamethasone and Remdesivir, follow d-dimer, LDH, procalcitonin, monitor in PCU status. Repeat xray shows improvement in bilateral infiltrates. #Elevated creatinine- initially creatinine decreased with IV fluid, now creatinine slightly elevated again-follow tomorrow. Suspect possible CKD III- avoid nephrotoxic meds. 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 Hep C ab not available in orders but should be considered to evaluate for chronic hep C. #Hypertension - home dose Coreg, holding home norvasc for now. #Hx of cardiomyopathy - per records this was secondary to chemotherapy from breast cancer and hypertension, LVEF recovered to 55%. No evidence of congestive heart failure now, holding lasix for elevated creatinine. On Coreg per above, currently not on an YARELI-I or ARB but was in the past per review of records. #Hx of breast cancer, 2008 - treated with surgery, chemotherapy and radiation therapy. No evidence of recurrence. #Supraventricular tachycardia - resolved spontaneously, increased Coreg back to home dose. Temeletry. #DVT prophylaxis - Heparin SQ and SCD. Time Spent With Patient Time: Total time spent is greater than 50% in coordination of care (as documented) at patient's floor/unit and/or counseling patient: Total time spent with greater than 50% in coordination of care (as documented) at patient's floor/unit and/or counseling patient:: 25 - 35 minutes
[2020-05-25] MEDS ORDERED: SENNOSIDES 1 TABLET PO PRN (15:25)
[2020-05-25 16:47] LABS: Hepatitis C Virus Antibody Non-Reactive (Non-Reactive)
[2020-05-25] MEDS: CARVEDILOL 12.5 MG TABLET PO SCH (17:14)
[2020-05-25] MEDS: HEPARIN 5,000 UNIT/ML VIAL SQ SCH (21:21)
[2020-05-25] MEDS: DOCUSATE SODIUM 100 MG CAPSULE PO SCH (21:21)
[2020-05-26] MEDS: HEPARIN 5,000 UNIT/ML VIAL SQ SCH (05:52)
[2020-05-26] MEDS: 0.9 % SODIUM CHLORIDE 10 ML SYRINGE IV SCH (05:52)
[2020-05-26 07:45] LABS: Lactate Dehydrogenase 376 U/L (135-225)
[2020-05-26 07:51] LABS: ALT/SGPT 50 U/L (<40); AST/SGOT 46 U/L (<32); Albumin 2.5 gm/dL (3.2-5.2); Albumin/Globulin Ratio 0.9 (1.0-2.3); Alkaline Phosphatase 149 U/L (39-117); Bilirubin,Direct < 0.2 mg/dL (<0.3); Bilirubin,Total 0.3 mg/dL (0.1-1.0); Blood Urea Nitrogen 32 mg/dL (8-23); Calcium 7.8 mg/dL (8.6-10.4); Carbon Dioxide 24 mmol/L (22-30); Chloride 102 mmol/L (96-108); Globulin 2.9 gm/dL (2.2-3.7); Glomerular Filtration Rate 52; Glucose 158 mg/dL (70-105); Lactate Dehydrogenase 370 U/L (135-225); Phosphorous 3.3 mg/dL (2.5-4.5); Triglycerides 60 mg/dL (<150); Uric Acid 5.1 mg/dL (2.5-8.0)
[2020-05-26] MEDS: CARVEDILOL 12.5 MG TABLET PO SCH (08:05)
[2020-05-26] MEDS: DOCUSATE SODIUM 100 MG CAPSULE PO SCH (08:05)
[2020-05-26 08:35] LABS: Hematocrit 34.2 % (36.0-48.0); Hemoglobin 11.4 g/dL (12.0-15.0); Lymphocytes % 9 % (15-49); Mean Corpuscular HGB Conc 33.3 g/dL (31.0-36.0); Mean Platelet Volume 10.2 fL (7.4-10.4); Monocytes % (Manual) 8 % (1-12); Platelet Count 383 K/mcL (140-440); Platelet Estimate NORMAL (Normal); RBC 3.76 M/mcL (4.00-5.20); RBC Morphology NORMAL (Normal); Red Cell Distribution Width 12.6 % (11.5-14.5); Segmented Neutrophils % 83 % (38-78); WBC 14.8 K/mcL (4.5-11.0)
[2020-05-26] MEDS ORDERED: DEXAMETHASONE 4 MG TABLET PO SCH (09:00)
[2020-05-26] MEDS ORDERED: ASPIRIN 81 MG TAB.CHEW PO SCH (09:00)
--- NOTE | 2020-05-26 10:55 | Discharge Summary ---
Discharge Provider Provider Patient information: Note initiated : 05/26/20 at 10:43 am Service Date, if different from initiated Date: [] Patient: Sherry Watson 84 y/o F admitted on 05/23/20 for short of breath, fever, nausea, chills. Chief Complaint: [shortness of breath] Date of admission: 05/23/20 17:40 Discharge date: 05/26/20 Primary care physician: Trent Cope MD Consults: 05/23/20 Consult to Physician [CONS] Stat Comment: Consulting Provider: James Cordero Reason For Exam: Physician to Consult Discharge Meds Discharge Medications Home Medications aspirin 81 mg tablet,delayed release 81 mg PO QDAY 11/03/19 [History Confirmed 05/23/20 Last Taken 05/23/20 06:30] calcium carbonate 600 mg calcium (1,500 mg) tablet 600 mg PO QDAY 11/03/19 [History Confirmed 05/23/20 Last Taken 05/23/20 06:30] carvedilol 12.5 mg tablet 12.5 mg PO BID 11/03/19 [History Confirmed 05/23/20 Last Taken 05/22/20 17:30] furosemide 20 mg tablet 20 mg PO QDAY 11/03/19 [History Confirmed 05/23/20 Last Taken 05/23/20 06:30] potassium chloride 20 mEq tablet,extended release(part/cryst) 20 meq PO QDAY 11/03/19 [History Confirmed 05/23/20 Last Taken 05/23/20 06:30] amlodipine 5 mg tablet 5 mg PO QDAY #90 tab 03/22/20 [Rx Confirmed 05/23/20 Last Taken 05/22/20 17:30] dexamethasone 6 mg PO DAILY 7 Days #7 tab 05/26/20 [Rx Last Taken Unknown] COURSE Hospital Course Hospital course: Ms. Watson is a 84 year old female with a history of hypertension, breast cancer diagnosed in 2019 status post surgery, chemotherapy and radiation therapy and no recurrence, Hx of cardiomyopathy-recovered LVEF continues on low dose Lasix who presented to the ED for progressive shortness of breath. The patient had been diagnosed with COVID on 05/19 with a positive SARS-CoV-2 PCR when she presented for clinical evaluation of severe fatigue. She went home but later developed a cough and shortness of breath prompting this ED visit. In the ED, the patient was hypoxic and had a new oxygen requirement of 2 l/min. Chest xray PA showed moderate patchy infiltrate in the RLL and patchy infiltrates in both upper and lower left lung vazquez. WBC was normal, lactic acid was initially 3.3 and improved to 1.5 after IV fluid was given. Creatinine was 1.3 and LFTs were mildly elevated. Procalcitonin was .18. Code status was discussed, the patient wishes to be DNR/DNI. The patient was started on Dexamethasone and Remdesivir for COVID-19 and acute hypoxic respiratory failure. The patient's respiratory status improved over the next couple days, she was weaned off oxygen and generally felt like she had mostly recovered to her baseline. On 05/24 she had a short run of SVT on telemetry that resolved spontaneously. The patient had elevated LFTs of unknown cause. A RUQ ultrasound showed hepatic cysts, Hepatitic B and C workup was negative. The cause was not known, could be medication related, ESTEBAN, other infectious causes (COVID)or less likely an autoimmune process. OT saw the patient and felt she could discharge to home without home health services. The patient was discharged, she will complete 10 days of Dexamethasone. To do; Follow up elevated LFTs, if persistently elevated consider GI referral. Discharge diagnosis: COVID-19 Time Spent with Patient Time attestation: Total time spent providing and/or coordinating discharge services: Time spent: Greater than 30 minutes EXAM Constitutional Vitals: Temp Pulse Resp BP Pulse Ox 97.2 F 80 20 154/78 94 05/26/20 07:49 05/26/20 07:49 05/26/20 07:49 05/26/20 07:49 05/26/20 07:49 Head Head exam: Present atraumatic and normal inspection Eye Eye exam: Present normal appearance; Absent scleral icterus Neck Neck exam: Present full ROM Respiratory Respiratory exam: Present normal respiratory exam Cardiovascular Cardiovascular exam: Present normal rate and rhythm GI/Abdominal GI/Abdominal exam: Present soft; Absent tenderness Extremities Exam Extremities exam: Present full ROM and normal inspection Neurological Exam Neurological exam: Present CN II-XII intact and oriented X3 Psychiatric Psychiatric exam: Present normal affect and normal mood Skin Skin exam: Present normal color and warm Discharge Data Data Completed and Pending Labs on day of discharge: Labs from last 24 hours 05/26/20 05/26/2020 05:53 05:53 05:53 WBC RBC Hgb Hct MCV MCH MCHC RDW Plt Count MPV Seg Neutrophils % Lymphocytes % Monocytes % (Manual) Platelet Estimate RBC Morphology D-Dimer 1.25 H Sodium Potassium Chloride Carbon Dioxide Anion Gap BUN Creatinine GFR Calculation Glucose Uric Acid Calcium Phosphorus Magnesium Total Bilirubin Direct Bilirubin GGT AST ALT Alkaline Phosphatase Lactate Dehydrogenase 376 H Total Protein Albumin Globulin Albumin/Globulin Ratio Triglycerides Procalcitonin 0.13 H Hep Bs Antigen Hepatitis C Antibody HCV RNA Quant (PCR) HCV RNA PCR log IUs/ml 05/26/20 05/26/20 05/25/20 05:53 05:53 14:43 WBC 14.8 H RBC 3.76 L Hgb 11.4 L Hct 34.2 L MCV 91.0 MCH 30.3 MCHC 33.3 RDW 12.6 Plt Count 383 MPV 10.2 Seg Neutrophils % 83 H Lymphocytes % 9 L Monocytes % (Manual) 8 Platelet Estimate Normal RBC Morphology Normal D-Dimer Sodium 139 Potassium 3.9 Chloride 102 Carbon Dioxide 24 Anion Gap 13.0 BUN 32 H Creatinine 1.0 GFR Calculation 52 Glucose 158 H Uric Acid 5.1 Calcium 7.8 L Phosphorus 3.3 Magnesium 2.2 Total Bilirubin 0.3 Direct Bilirubin < 0.2 GGT 69 H AST 46 H ALT 50 H Alkaline Phosphatase 149 H Lactate Dehydrogenase 370 H Total Protein 5.4 L Albumin 2.5 L Globulin 2.9 Albumin/Globulin Ratio 0.9 L Triglycerides 60 Procalcitonin Hep Bs Antigen Hepatitis C Antibody Non-reactive HCV RNA Quant (PCR) Pending HCV RNA PCR log IUs/ml Pending 05/25/20 07:57 WBC RBC Hgb Hct MCV MCH MCHC RDW Plt Count MPV Seg Neutrophils % Lymphocytes % Monocytes % (Manual) Platelet Estimate RBC Morphology D-Dimer Sodium Potassium Chloride Carbon Dioxide Anion Gap BUN Creatinine GFR Calculation Glucose Uric Acid Calcium Phosphorus Magnesium Total Bilirubin Direct Bilirubin GGT AST ALT Alkaline Phosphatase Lactate Dehydrogenase Total Protein Albumin Globulin Albumin/Globulin Ratio Triglycerides Procalcitonin Hep Bs Antigen Negative Hepatitis C Antibody HCV RNA Quant (PCR) HCV RNA PCR log IUs/ml Discharge Plan Patient/Caregiver Discharge Instructions Activity: increase activity as tolerated Diet: Regular Diet Prescriptions: New dexamethasone 6 mg tablet 6 mg PO DAILY 7 Days Qty: 7 RF: 0 Continued amlodipine [Norvasc] 5 mg tablet 5 mg PO QDAY Qty: 90 RF: 0 potassium chloride [Klor-Con M20] 20 mEq tablet,ER particles/crystals 20 meq PO QDAY RF: 0 furosemide 20 mg tablet 20 mg PO QDAY RF: 0 carvedilol 12.5 mg tablet 12.5 mg PO BID RF: 0 calcium carbonate [Calcium 600] 600 mg calcium (1,500 mg) tablet 600 mg PO QDAY RF: 0 aspirin [Adult Aspirin Regimen] 81 mg tablet,delayed release (DR/EC) 81 mg PO QDAY RF: 0 Discontinued amoxicillin 500 mg capsule 1,000 mg PO BID Qty: 20 RF: 0 Follow Up Plan Follow up with: Trent Cope MD [Primary Care Provider] - Patient Disposition: Home, Self-Care Prognosis: Fair Rehab Potential: Good Overall status at discharge: patient is progressing back to baseline Discharge Location: [facility] Discharge Orders: Discharge Order (Routine); Ordered 05/26/20 Ordered By: James Cordero
[2020-05-26] MEDS ORDERED: REMDESIVIR 100 MG in 0.9 % SODIUM CHLORIDE 250 ML IV SCH (13:00)
== END 2020-05-26 12:45 | disposition home or self-care (01) | DRG 177 ==
LOC: ED 10:48 → ICU 17:40 → MEDSUR 05-25 17:35
PROVIDERS: ADMIT Internal Medicine; ATTEND Internal Medicine